=== PATIENT | male | born 1945 | race Caucasian/White ===

== ENCOUNTER 2018-08-13 18:26 | Emergency (ER) | payer MEDICARE ==
[~2018-08-13] VITALS: Ht 172.7 cm; Wt 91.0 kg
[2018-08-13 18:46] VITALS: BP 123/78
[2018-08-13] MEDS ORDERED: IBUPROFEN 200 MG TABLET ONE (19:28)
[2018-08-13] MEDS ORDERED: IBUPROFEN 200 MG TABLET PO ONE (19:30)
== END 2018-08-13 20:37 | disposition home or self-care (01) ==
LOC: ED 19:00
DX: S60.221A Contusion of right hand, initial encounter (principal); Z88.1 Allergy status to other antibiotic agents; Z88.8 Allergy status to other drugs, medicaments and biological substances; X58.XXXA Exposure to other specified factors, initial encounter; Y93.89 Activity, other specified; Y99.8 Other external cause status; Y92.89 Other specified places as the place of occurrence of the external cause
CPT/HCPCS: 99283